=== PATIENT | male | born 1985 | race Asian ===

== ENCOUNTER 2022-12-04 08:03 | Outpatient (CLI) | payer OTHER | END 2022-12-04 19:50 | disposition home or self-care (01) | LOC: CT 08:03 | PROVIDERS: ATTEND Physician Assistant Medical | DX: R93.5 Abnormal findings on diagnostic imaging of other abdominal regions, including retroperitoneum (principal); R31.9 Hematuria, unspecified; I10 Essential (primary) hypertension; N40.0 Benign prostatic hyperplasia without lower urinary tract symptoms | CPT/HCPCS: 36415; 82565; 84520; Q9963 ==